=== PATIENT | male | born 1965 | race American Indian/Alaskan Native ===

== ENCOUNTER 2020-04-01 21:36 | Emergency (ER) | payer BC ==
--- NOTE | 2020-04-02 00:27 | Cat Scan Report ---
CT head without contrast INDICATION : Syncopal episode. TECHNIQUE: Axial imaging performed from the skull apex through the skull base without the use of con trast. All CT examinations performed at this facility utilize dose modulation, iterative reconstruct ion or weight-based dosing, when appropriate, to reduce radiation dose to as low as reasonably achiev able. COMPARISON: None FINDINGS: No acute intracranial hemorrhage or parenchymal abnormality. Ventricles are normal in si ze and appear symmetric. Soft tissues including the orbits appear normal. No acute osseous abnorm ality. There is mild sinus disease within the ethmoids and maxillary sinuses. IMPRESSION: No acute intracranial abnormality. Mild acute sinusitis. Signer Name: Cr Redd MD Signed: 04/02/2020 12:22 AM Workstation Name: [id number]
--- NOTE | 2020-04-02 00:27 | Emergency Department Report ---
HPI - General Chief Complaint: Syncope Time Seen by Provider: 04/01/20 23:48 - HPI HPI: This is a 54-year-old male who presents to the emergency department after he had an episode in which he passed out and may have had a seizure. Patient donated plasma earlier in the day. He then went home and started drinking wine without eating any food. He was sitting down with his grandson watching the football game when the grandson alerted the patient's daughter that "something is wrong with pop pop." The patient's daughter, whom I spoke with on the phone, says that she found the patient with his eyes open, staring off, making some unintelligible moaning sounds. He remained this way for about 5 minutes and then slowly came back to being alert. During this time the patient also urinated on himself. At the time of my examination the patient is awake, alert, oriented. He has a history of previous pulmonary emboli but is not currently on any anticoagulation. He also has a history of some type of cardiac arrhythmia. He follows with a Dr. Enzo España for PCP. ED Past Medical Hx - Past Medical History Previous Medical History?: Yes Hx Pulmonary Embolism: Yes (Bilateral PE's x 2) Hx Seizures: Yes Additional medical history: Cardiac Arrhythmias, Right hip pain awaiting hip replacement surgery - Surgical History Past Surgical History?: No - Social History Smoking Status: Current Some Day Smoker Substance Use Type: Alcohol - Medications Home Medications: Home Medications Medication Instructions Recorded Confirmed Last Taken Type Albuterol Sulfate [Ventolin HFA] 2 puff IH Q4H PRN #1 hfa.aer.ad 04/02/15 Unknown Rx Azithromycin [Zithromax Z-STEPHANIE] 250 mg PO DAILY #1 pkg 04/02/15 Unknown Rx Fluticasone [Flonase] 2 spray NS QDAY #1 bottle 04/02/15 Unknown Rx Prednisone [predniSONE 10 mg 10 mg PO .TAPER #1 tab.ds.pk 04/02/15 Unknown Rx (6-Day Pack, 21 Tabs)] Sulfamethoxazole/Trimethoprim 1 each PO BID #20 tablet 04/02/20 Unknown Rx [Bactrim DS TAB] ED Review of Systems ROS: Stated complaint: DIZZY, ABDOMINAL PAIN Other details as noted in HPI Comment: All other systems reviewed and negative Constitutional: denies: chills, fever Eyes: denies: eye pain, vision change ENT: denies: ear pain, throat pain Respiratory: denies: cough, shortness of breath Cardiovascular: syncope. denies: chest pain, palpitations Gastrointestinal: denies: abdominal pain, vomiting Genitourinary: other (episode of urinary incontinence). denies: dysuria, discharge Musculoskeletal: denies: back pain, arthralgia Skin: denies: rash, lesions Neurological: other (seizure). denies: numbness Physical Exam - Physical Exam Vital Signs: Vital Signs 04/01/20 04/01/20 22:34 23:55 Temperature 98.1 F 98.1 F Pulse Rate 79 65 Respiratory 17 14 Rate Blood Pressure 99/59 Blood Pressure 103/69 [Left] O2 Sat by Pulse 98 95 Oximetry Physical Exam: GENERAL: The patient is well-developed well-nourished. HENT: Normocephalic. Atraumatic. Patient has moist mucous membranes. EYES: Extraocular motions are intact. No nystagmus. NECK: Supple. Trachea is midline. CHEST/LUNGS: Clear to auscultation. There is no respiratory distress noted. HEART/CARDIOVASCULAR: Regular. There is no tachycardia. ABDOMEN: Abdomen is soft, nontender. Patient has normal bowel sounds. There is no abdominal distention. SKIN: Skin is warm and dry. NEURO: The patient is awake, alert, and oriented. The patient is cooperative. The patient has no focal neurologic deficits. Normal speech. Cranial nerves II to XII grossly intact. No pronator drift or dysmetria. No facial asymmetry. MUSCULOSKELETAL: There is no tenderness or deformity. There is no limitation range of motion. There is no evidence of acute injury. : There is some tenderness to palpation to the right side of the scrotum and right testicle. No swelling, lesions. ED Course Vital Signs 04/01/20 04/01/20 22:34 23:55 Temperature 98.1 F 98.1 F Pulse Rate 79 65 Respiratory 17 14 Rate Blood Pressure 99/59 Blood Pressure 103/69 [Left] O2 Sat by Pulse 98 95 Oximetry - Reevaluation(s) Reevaluation #1: 04/02/20 04:30 Lab Results 04/01/20 04/01/20 04/01/20 Range/Units 23:20 23:20 23:20 WBC 16.4 H (4.5-11.0) K/mm3 RBC 4.95 (3.65-5.03) M/mm3 Hgb 15.5 H (11.8-15.2) gm/dl Hct 44.7 (35.5-45.6) % MCV 90 (84-94) fl MCH 31 (28-32) pg MCHC 35 H (32-34) % RDW 13.8 (13.2-15.2) % Plt Count 305 (140-440) K/mm3 Lymph % (Auto) 9.3 L (13.4-35.0) % Barnes % (Auto) 5.7 (0.0-7.3) % Eos % (Auto) 0.9 (0.0-4.3) % Baso % (Auto) 0.4 (0.0-1.8) % Lymph # (Auto) 1.5 (1.2-5.4) K/mm3 Barnes # (Auto) 0.9 H (0.0-0.8) K/mm3 Eos # (Auto) 0.1 (0.0-0.4) K/mm3 Baso # (Auto) 0.1 (0.0-0.1) K/mm3 Seg Neutrophils % 83.7 H (40.0-70.0) % Seg Neutrophils # 13.7 H (1.8-7.7) K/mm3 PT 13.3 (12.2-14.9) Sec. INR 0.99 (0.87-1.13) Sodium 141 (137-145) mmol/L Potassium 4.6 (3.6-5.0) mmol/L Chloride 102.4 (98-107) mmol/L Carbon Dioxide 25 (22-30) mmol/L Anion Gap 18 mmol/L BUN 12 (9-20) mg/dL Creatinine 1.3 (0.8-1.3) mg/dL Estimated GFR > 60 ml/min BUN/Creatinine Ratio 9 % Glucose 66 L (75-100) mg/dL Calcium 9.2 (8.4-10.2) mg/dL Total Bilirubin 0.30 (0.1-1.2) mg/dL AST 16 (5-40) units/L ALT 11 (7-56) units/L Alkaline Phosphatase 39 (35-129) units/L Troponin T < 0.010 (0.00-0.029) ng/mL Total Protein 6.5 (6.3-8.2) g/dL Albumin 3.9 (3.9-5) g/dL Albumin/Globulin Ratio 1.5 % Plasma/Serum Alcohol (0-0.07) % 04/01/20 Range/Units 23:20 WBC (4.5-11.0) K/mm3 RBC (3.65-5.03) M/mm3 Hgb (11.8-15.2) gm/dl Hct (35.5-45.6) % MCV (84-94) fl MCH (28-32) pg MCHC (32-34) % RDW (13.2-15.2) % Plt Count (140-440) K/mm3 Lymph % (Auto) (13.4-35.0) % Barnes % (Auto) (0.0-7.3) % Eos % (Auto) (0.0-4.3) % Baso % (Auto) (0.0-1.8) % Lymph # (Auto) (1.2-5.4) K/mm3 Barnes # (Auto) (0.0-0.8) K/mm3 Eos # (Auto) (0.0-0.4) K/mm3 Baso # (Auto) (0.0-0.1) K/mm3 Seg Neutrophils % (40.0-70.0) % Seg Neutrophils # (1.8-7.7) K/mm3 PT (12.2-14.9) Sec. INR (0.87-1.13) Sodium (137-145) mmol/L Potassium (3.6-5.0) mmol/L Chloride (98-107) mmol/L Carbon Dioxide (22-30) mmol/L Anion Gap mmol/L BUN (9-20) mg/dL Creatinine (0.8-1.3) mg/dL Estimated GFR ml/min BUN/Creatinine Ratio % Glucose (75-100) mg/dL Calcium (8.4-10.2) mg/dL Total Bilirubin (0.1-1.2) mg/dL AST (5-40) units/L ALT (7-56) units/L Alkaline Phosphatase (35-129) units/L Troponin T (0.00-0.029) ng/mL Total Protein (6.3-8.2) g/dL Albumin (3.9-5) g/dL Albumin/Globulin Ratio % Plasma/Serum Alcohol < 0.01 (0-0.07) % Reevaluation #2: 04/02/20 04:30 Vital Signs 04/01/20 04/01/20 04/02/20 22:34 23:55 00:18 Temperature 98.1 F 98.1 F Pulse Rate 79 65 66 Respiratory 17 14 12 Rate Blood Pressure 99/59 118/75 Blood Pressure 103/69 [Left] O2 Sat by Pulse 98 95 98 Oximetry 04/02/20 04/02/20 04/02/20 00:30 01:10 01:16 Temperature Pulse Rate 66 72 Respiratory 16 18 24 Rate Blood Pressure 118/75 117/73 Blood Pressure [Left] O2 Sat by Pulse 96 97 Oximetry 04/02/20 04/02/20 04/02/20 01:30 02:10 02:45 Temperature Pulse Rate Respiratory 18 Rate Blood Pressure 113/68 108/67 Blood Pressure [Left] O2 Sat by Pulse 95 96 Oximetry 04/02/20 04/02/20 04/02/20 03:15 03:30 04:00 Temperature Pulse Rate 78 Respiratory 18 Rate Blood Pressure 102/56 102/56 Blood Pressure 106/56 [Left] O2 Sat by Pulse 96 98 98 Oximetry ED Medical Decision Making - Lab Data Result diagrams: 04/01/20 23:20 04/01/20 23:20 - EKG Data -: EKG Interpreted by [facility] EKG shows normal: sinus rhythm, axis, intervals, QRS complexes, ST-T waves (Early repolarization) Rate: normal - EKG Data When compared to previous EKG there are: previous EKG unavailable Interpretation: other (Sinus rhythm, normal axis, normal intervals, early repolarization) - Radiology Data Radiology results: report reviewed Ultrasound testicular INDICATION: Testicular pain FINDINGS: The right testicle measures 4 x 2.8 x 1.3 0.1 mm, measured 4.5 x 2.4 x 2.7 cm. Normal Doppler flow and within the testicles. Small epididymal cyst are noted bilaterally. Review of the epididymis demonstrates increased Doppler flow identified about the right epididymis. The left epididymis is unremarkable IMPRESSION: Acute epididymitis of the right epididymis.. CT head without contrast INDICATION : Syncopal episode. TECHNIQUE: Axial imaging performed from the skull apex through the skull base without the use of contrast. All CT examinations performed at this facility utilize dose modulation, iterative reconstruction or weight-based dosing, when appropriate, to reduce radiation dose to as low as reasonably achievable. COMPARISON: None FINDINGS: No acute intracranial hemorrhage or parenchymal abnormality. Ventricles are normal in size and appear symmetric. Soft tissues including the orbits appear normal. No acute osseous abnormality. There is mild sinus disease within the ethmoids and maxillary sinuses. IMPRESSION: No acute intracranial abnormality. Mild acute sinusitis. - Medical Decision Making This patient presents to the emergency department with the complaint of having a syncopal episode and possible seizure prior to presentation. Since being in the emergency department the patient has been awake, alert, oriented. He has no focal, motor or sensory deficits and his cranial nerves are intact. CT scan of the head did not show any bleed, shift, mass, ischemia, or any other acute process. Patient's labs have been mostly unremarkable except for a mild leukocytosis. Patient also complains of some right-sided groin pain. No palpable hernia. Ultrasound shows acute right-sided epididymitis. The patient will be placed on Bactrim for the epididymitis and has been given an outpatient referral for urology. The patient has also been given a referral for neurology to follow-up regarding the seizure-like activity. He has been reevaluated multiple times over multiple hours in the emergency department and there has been no further seizure-like activity. His vital signs have been reassuring throughout his ED course including being afebrile. He will be discharged home to follow-up with the referred specialist, a primary care physician, and he will return to the ER with any worsening of his symptoms or with any acute distress. Critical Care Time: No Critical care attestation.: If time is entered above; I have spent that time in minutes in the direct care of this critically ill patient, excluding procedure time. ED Disposition Clinical Impression: Seizure-like activity, Acute epididymitis Syncope Qualifiers: Syncope type: unspecified Qualified Code(s): R55 - Syncope and collapse Disposition: DC-01 TO HOME OR SELFCARE Is pt being admited?: No Condition: Stable Instructions: Epididymitis (ED), Syncope (ED), New-Onset Seizure in Adults (ED) Additional Instructions: Please follow-up with a primary care physician in the next few days. I am giving you a referral for a local urologist, Dr. Alejandre, to follow-up regarding your epididymitis. I am giving you a referral for a local neurologist, Dr. Chavez, to follow-up regarding the episode of passing out and the seizure-like activity. Take the antibiotics as prescribed. Return to the emergency department with any worsening of your symptoms, new or concerning symptoms not addressed during this current emergency department visit, or with any acute distress. Prescriptions: Sulfamethoxazole/Trimethoprim [Bactrim DS TAB] 1 each PO BID #20 tablet Referrals: PRIMARY MD RADHA [Primary Care Provider] - 3-5 Days KARLENE CHAVEZ MD [Referring] - 3-5 Days Time of Disposition: 03:21
[2020-04-02 00:31] LABS: Basophils # (Auto) 0.1 K/mm3 (0.0-0.1); Basophils % (Auto) 0.4 % (0.0-1.8); Eosinophils # (Auto) 0.1 K/mm3 (0.0-0.4); Eosinophils % (Auto) 0.9 % (0.0-4.3); Hematocrit 44.7 % (35.5-45.6); Hemoglobin 15.5 gm/dl (11.8-15.2); Lymphocytes # (Auto) 1.5 K/mm3 (1.2-5.4); Lymphocytes % (Auto) 9.3 % (13.4-35.0); Mean Corpuscular HGB Conc 35 % (32-34); Mean Corpuscular Volume 90 fl (84-94); Monocytes # (Auto) 0.9 K/mm3 (0.0-0.8); Monocytes % (Auto) 5.7 % (0.0-7.3); Platelet Count 305 K/mm3 (140-440); Red Blood Count 4.95 M/mm3 (3.65-5.03); Red Cell Distribution Width 13.8 % (13.2-15.2)
[2020-04-02 00:43] LABS: INR 0.99 (0.87-1.13)
[2020-04-02 00:47] LABS: Alanine Aminotransferase 11 units/L (7-56); Albumin 3.9 g/dL (3.9-5); BUN/Creatinine Ratio 9; Blood Urea Nitrogen 12 mg/dL (9-20); Calcium 9.2 mg/dL (8.4-10.2); Hemolysis Index 7
[2020-04-02] MEDS ORDERED: oxyCODONE /ACETAMINOPHEN 5-325MG TAB PO ONE (00:52)
--- NOTE | 2020-04-02 02:49 | Ultrasound Report ---
Ultrasound testicular INDICATION: Testicular pain FINDINGS: The right testicle measures 4 x 2.8 x 1.3 0.1 mm, measured 4.5 x 2.4 x 2.7 cm. Normal Doppl er flow and within the testicles. Small epididymal cyst are noted bilaterally. Review of the epididym is demonstrates increased Doppler flow identified about the right epididymis. The left epididymis is unremarkable IMPRESSION: Acute epididymitis of the right epididymis.. Signer Name: Cr Redd MD Signed: 04/02/2020 2:45 AM Workstation Name: [id number]
[2020-04-02] MEDS ORDERED: SULFAMETHOXAZOLE/TRIMETHOPRIM 800/160MG DS TAB PO ONE (03:16)
[2020-04-02 04:03] VITALS: BP 106/56
== END 2020-04-02 04:00 | disposition home or self-care (01) ==
LOC: ED 21:36
DX: N45.1 Epididymitis (principal); R55 Syncope and collapse; R56.9 Unspecified convulsions; F17.200 Nicotine dependence, unspecified, uncomplicated; Z86.711 Personal history of pulmonary embolism; Z79.2 Long term (current) use of antibiotics; Z79.899 Other long term (current) drug therapy
CPT/HCPCS: 36415; 70450; 80053; 80320; 82962; 84484; 85025; 85610; 93005; 93975; G0480

== ENCOUNTER 2020-05-19 21:15 | Emergency (ER) | payer BC ==
[2020-05-20 02:26] LABS: Hematocrit 40.8 % (35.5-45.6); Mean Corpuscular HGB Conc 34 % (32-34); Mean Corpuscular Volume 91 fl (84-94); Platelet Count 394 K/mm3 (140-440); Red Blood Count 4.47 M/mm3 (3.65-5.03); Red Cell Distribution Width 14.5 % (13.2-15.2)
[2020-05-20] MEDS ORDERED: levETIRAcetam 1000 MG/NS 0.75% 1,000 MG/100 ML BAG IV ONE (16:00)
[2020-05-20 18:10] VITALS: BP 106/53
--- NOTE | 2020-05-20 18:50 | Emergency Department Report ---
ED Seizure HPI - General Chief Complaint: Seizure Stated Complaint: SEIZURE Time Seen by Provider: 05/20/20 16:10 Source: patient, EMS Mode of arrival: Ambulatory Limitations: No Limitations - History of Present Illness Initial Comments: This 54-year-old male 2-week status post hip replacement currently on narcotic medication for pain control presents emerged department after a seizure about 24 hours ago he was at his daughter's house having dinner and reports he had a glass of wine and then woke up on the floor with his family standing over him alerting him that he had a seizure. Reports no loss of bowel or bladder no saddle paresthesia he has not had any seizure activity since that time. Reports no fever, chills, sweats no hemoptysis no hematemesis no hematochezia Complaint: seizure -: Gradual Witnessed:: Yes Trauma: No Seizure History: known seizure disorder (First seizure was last month evaluate emergency department with normal CT scans) Possible Precipitating Event: none Associated Symptoms: denies other symptoms Treatments Prior to Arrival: none - Related Data Previous Rx's Medication Instructions Recorded Last Taken Type Albuterol Sulfate [Ventolin HFA] 2 puff IH Q4H PRN #1 hfa.aer.ad 04/02/15 Unknown Rx Azithromycin [Zithromax Z-STEPHANIE] 250 mg PO DAILY #1 pkg 04/02/15 Unknown Rx Fluticasone [Flonase] 2 spray NS QDAY #1 bottle 04/02/15 Unknown Rx Prednisone [predniSONE 10 mg 10 mg PO .TAPER #1 tab.ds.pk 04/02/15 Unknown Rx (6-Day Pack, 21 Tabs)] Sulfamethoxazole/Trimethoprim 1 each PO BID #20 tablet 04/02/20 Unknown Rx [Bactrim DS TAB] levETIRAcetam [Keppra TAB] 500 mg PO BID #60 tablet 05/20/20 Unknown Rx Allergies Allergy/AdvReac Type Severity Reaction Status Date / Time No Known Allergies Allergy Verified 04/02/15 23:37 ED Review of Systems ROS: Stated complaint: SEIZURE Other details as noted in HPI Comment: All other systems reviewed and negative ED Past Medical Hx - Past Medical History Previous Medical History?: Yes Hx Pulmonary Embolism: Yes (Bilateral PE's x 2) Hx Seizures: Yes Additional medical history: Cardiac Arrhythmias - Surgical History Past Surgical History?: Yes Additional Surgical History: Right Hip Replacement 05/03/20 - Social History Smoking Status: Current Some Day Smoker - Medications Home Medications: Home Medications Medication Instructions Recorded Confirmed Last Taken Type Albuterol Sulfate [Ventolin HFA] 2 puff IH Q4H PRN #1 hfa.aer.ad 04/02/15 Unknown Rx Azithromycin [Zithromax Z-STEPHANIE] 250 mg PO DAILY #1 pkg 04/02/15 Unknown Rx Fluticasone [Flonase] 2 spray NS QDAY #1 bottle 04/02/15 Unknown Rx Prednisone [predniSONE 10 mg 10 mg PO .TAPER #1 tab.ds.pk 04/02/15 Unknown Rx (6-Day Pack, 21 Tabs)] Sulfamethoxazole/Trimethoprim 1 each PO BID #20 tablet 04/02/20 Unknown Rx [Bactrim DS TAB] levETIRAcetam [Keppra TAB] 500 mg PO BID #60 tablet 05/20/20 Unknown Rx ED Physical Exam - General Limitations: No Limitations General appearance: alert, in no apparent distress - Head Head exam: Present: atraumatic, normocephalic - Eye Eye exam: Present: normal appearance, PERRL, EOMI. Absent: periorbital swelli ng, periorbital tenderness Pupils: Present: normal accommodation - ENT ENT exam: Present: normal exam, normal orophraynx, mucous membranes moist, TM's normal bilaterally - Neck Neck exam: Present: normal inspection, full ROM - Respiratory Respiratory exam: Present: normal lung sounds bilaterally. Absent: respiratory distress, wheezes, rhonchi, chest wall tenderness, accessory muscle use, prolonged expiratory - Cardiovascular Cardiovascular Exam: Present: regular rate, normal rhythm. Absent: systolic murmur, diastolic murmur, rubs, gallop - GI/Abdominal GI/Abdominal exam: Present: soft, normal bowel sounds - Rectal Rectal exam: Present: deferred - Extremities Exam Extremities exam: Present: normal inspection - Back Exam Back exam: Present: normal inspection - Neurological Exam Neurological exam: Present: alert, oriented X3 - Psychiatric Psychiatric exam: Present: normal affect, normal mood - Skin Skin exam: Present: warm, dry, intact, normal color. Absent: rash ED Course Vital Signs 05/20/20 05/20/20 05/20/20 08:42 16:14 18:09 Temperature 97.5 F L 98.2 F Pulse Rate 62 66 Respiratory 18 16 16 Rate Blood Pressure 113/70 Blood Pressure 106/53 [Left] O2 Sat by Pulse 97 99 Oximetry ED Medical Decision Making - Lab Data Result diagrams: 05/20/20 01:36 05/20/20 01:36 Critical care attestation.: If time is entered above; I have spent that time in minutes in the direct care of this critically ill patient, excluding procedure time. ED Disposition Clinical Impression: Seizure Disposition: DC- TO HOME OR SELFCARE Is pt being admited?: No Does the pt Need Aspirin: No Condition: Stable Instructions: Seizure, Adult, [id number] Prescriptions: levETIRAcetam [Keppra TAB] 500 mg PO BID #60 tablet Referrals: PRIMARY CAREMD [Primary Care Provider] - 3-5 Days LIAT HAIDER MD [Staff Physician] - 3-5 Days KARLENE CHAVEZ MD [Referring] - 3-5 Days
== END 2020-05-20 18:48 | disposition home or self-care (01) ==
LOC: ED 21:15
DX: R56.9 Unspecified convulsions (principal); F17.200 Nicotine dependence, unspecified, uncomplicated; Z98.890 Other specified postprocedural states; Z86.711 Personal history of pulmonary embolism; Z79.2 Long term (current) use of antibiotics; Z79.899 Other long term (current) drug therapy
CPT/HCPCS: 36415; 80048; 85027; 96365; 99283; J1953